=== PATIENT | male | born 1995 | race Caucasian/White ===

== ENCOUNTER 2022-03-14 14:19 | Outpatient (CLI) | payer OTHER ==
--- NOTE | 2022-03-14 15:57 | MRI Report ---
PROCEDURE: Lumbar Spine W/O INDICATIONS: LOW BACK PAIN TECHNIQUE: Noncontrast sagittal T1 spin echo and T2 fast echo, sagittal STIR, axial T1 and T2 fast spin echo thr ough the lumbar spine. In cases with scoliosis, additional coronal T2 fast spin echo may be performe d. COMPARISON: None. FINDINGS: Image quality: Excellent. Alignment and Curvature: There is normal bony alignment. Bone Marrow: Marrow is of normal overall signal. No acute vertebral body compression fractures. Spinal Cord: Conus medullaris terminates at the L2 level. Visualized cord demonstrates normal signa l and size. Paraspinous Soft Tissues: No paravertebral masses. This patient has transitional anatomy. For the purposes of this examination, the level with the last visualized pair of ribs is considered to be T12. By this imaging scheme, there is a transitional S1-S 2 disc. The S1 level is transitional and is lumbarized on the right. T12-L1: Normal in appearance. L1-L2: Normal in appearance. L2-L3: Normal in appearance. L3-L4: Normal in appearance. L4-L5: The disc height and disc signal are well preserved. Mild disc bulge is seen. Mild facet hypertrophy is seen. Mild to moderate bilateral neuroforaminal narrowing can be seen. Mild central canal narrowing is seen. L5-S1: The disc height and disc signal are well preserved. Mild disc bulge is seen. Mild to moder ate facet hypertrophy is seen, left worse than right. At least moderate bilateral neuroforaminal narr owing can be seen. Minimal central canal narrowing is seen. IMPRESSION: Premature lower lumbar spine degenerative changes are seen. 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 Reviewed by: Aguila Headley MD on 03/14/2022 2:56 PM GRACE Approved by: Aguila Headley MD on 03/14/2022 2:56 PM RGACE Station ID: [id number]
== END 2022-03-14 14:20 | disposition home or self-care (01) ==
LOC: DI 14:19
PROVIDERS: ATTEND Student in an Organized Health Care Education/Training Program
DX: M47.816 Spondylosis without myelopathy or radiculopathy, lumbar region (principal); M47.817 Spondylosis without myelopathy or radiculopathy, lumbosacral region; M48.061 Spinal stenosis, lumbar region without neurogenic claudication; M48.07 Spinal stenosis, lumbosacral region

== ENCOUNTER 2022-09-07 09:06 | Outpatient (CLI) | payer OTHER ==
--- NOTE | 2022-09-07 09:36 | SLEEP CARE CONSULTATION ---
Information from patient questionnaire entered by Jenn Gould. I have reviewed and concur with the information entered by Jenn Gould. This document represents the service I personally performed and the decisions made by me, Natalie Ascencio ARNP. History of Present Illness Service Date and Time: 09/07/2022 0906 Reason for Visit: New patient Chief Complaint: reports: Unrefreshed sleep, Snoring, Excessive daytime sleepiness, Observed pauses in breathing, Fatigue Date of Onset: 2yrs Usual bedtime: 2230; weekends later Time it takes to fall asleep: 3-5min Snores at night: Yes Observed to quit breathing while asleep: Yes Sleeps alone due to snoring: Yes Number of times waking at night: 1-2 Reasons for waking at night: reports: Choking, Snoring Toss, Turn, or Twitch while sleeping: Yes Recalls having dreams: Yes Usually gets out of bed at: 0540; weekends 0900 Feels refreshed in the morning: No Morning headache: No Sleepy or fatigued during the day: Yes Ever fallen asleep while driving: No Takes day naps: Yes (daily for at least 20-30 minutes at lunchtime) Dreams during day naps: Yes Prior sleep studies: Yes (Jul 2021 [facility]) Additional HPI information: I had the pleasure of seeing LETTY REID today regarding the possibility of him having a sleep disorder. His current complaints are excessive daytime sleepiness, fatigue, observed pauses in breathing, snoring and unrefreshed sleep. He states he has been "sluggish and tired" for the last 2 years. He is sleeping separate from who is because of his loud snoring and he would sound like he is choking waking her up. He also is stopping breathing when sleeping. He had a sleep study that diagnosed a moderate sleep apnea in Jul or Sep. They were going to set him up with a CPAP but it did not happen. He is not able to find any records of the sleep study results. - Parasomnia Symptoms Ever been unable to move upon waking from sleep: Yes (2 times only last year) Walks in sleep: No Talks in sleep: No Ever acted out dreams in sleep: No Ever felt weak in the knees when startled or emotional: No Bothered by creepy, crawly, restless sensations in legs: No Problems with memory or concentration: Yes (both) Subjective Initial Downing Sleepiness Scale score: 16 (09/07/2022) Past Medical History Past Medical History: reports: Anxiety, Other (chronic back issues) Social History The patient's occupation is a AM. Patient is and lives in . Have you smoked in the past 12 months: No Cigarettes per day (20/pack): 2 Years of smokin (not six yrs but six months) Quit date: 09/2019 Smoking Pack Years: 0.6 Alcohol use: No Caffeine use: Yes Caffeine amount and frequency: 1 8oz coffee daily Family History Family history of sleep disordered breathing: Yes Family Hx Sleep Apnea: Mother: Snoring, Sleep apnea - Untreated, Father: Snoring, Sleep apnea - Untreated Allergies and Home Medications Known drug allergies: No Drug allergies reviewed: Yes (NKDA) Home medication list reviewed: Yes Allergy and home medication list: Medications: Meloxicam, prn Lidocaine patches, prn Gabapentin, prn Review of Systems Weight gain over past 5 years: 30 Cardiovascular: denies: high blood pressure Gastrointestinal: denies: heartburn Neurological: reports: head trauma (concussion 6 yrs ago). denies: headaches Psychiatric: reports: anxiety, depression Ear/Nose/Throat: denies: tonsillectomy, wisdom teeth removed Endocrine: reports: sluggishness Musculoskeletal: reports: back pain Immunologic: reports: other (itchy eyes) Physical Exam Vital signs obtained and entered by: JENN Jefferson MA Blood Pressure: 138/90 (left arm) Cuff size: regular Heart Rate: 57 O2 Saturation: 96 Height: 5 ft 8.5 in Weight: 212 lb 12.8 oz Body Mass Index: 31.8 BMI Classification: Obese Neck circumference: 17 (inches) Mouth and throat: narrow oropharynx Soft palate: long Hard palate: normal Uvula: normal Uvula visualization: 25% Mallampati Class III Tongue: enlarged in size with teeth camara on lateral edges Tonsils: small Neck: normal w/o lymphadenopathy or thyromegaly Heart: regular rate and rhythm Lungs: clear bilaterally Impression and Plan 1. Suspected Obstructive Sleep Apnea-Hypopnea Syndrome, as previously diagnosed and as suggested by a history of loud and irregular snoring, observed cessation of breath while asleep, gasping or choking in sleep, unrefreshed sleep, cognitive impairment, and excessive daytime sleepiness. Narrow oropharynx and obesity are common predisposing factors for obstructive sleep apnea-hypopnea syndrome. I recommend proceeding to polysomnography to confirm the diagnosis and to assess severity. If the patient has significant sleep disordered breathing, a manual CPAP titration study will also be performed to find the optimal treatment pressure. I informed the patient of what the sleep studies involve and after some discussion, obtained agreement to proceed. The pathophysiology of obstructive sleep apnea-hypopnea syndrome was discussed with the patient and health risks of cardiovascular and cerebrovascular disease if not treated. Risks of drowsy driving discussed in detail and patient advised to avoid long distance driving and to mold puller at the first sign of drowsiness. Patient agreed to plan. * Schedule polysomnography * Avoid long distance driving or driving when feeling sleepy. * Avoid alcohol, sedative and muscle relaxant around bedtime. * Attempt to lose weight. * Review instructions provided by trained office staff on how to prepare for the sleep study. * Return for follow-up after sleep study completed. Counseling Topics: Weight loss health impact Visit Type: In Office Time Spent with Patient (minutes): 31 Provider Statement: I spent 100% of the Face to Face Visit with the patient with greater than 50% spent counseling the patient and coordination of care.
[2022-09-07 09:37] VITALS: BP 138/90
== END 2022-09-07 09:07 | disposition home or self-care (01) ==
LOC: SC 09:06
PROVIDERS: ATTEND Nurse Practitioner Family
DX: G47.33 Obstructive sleep apnea (adult) (pediatric) (principal); E66.9 Obesity, unspecified; Z68.31 Body mass index [BMI] 31.0-31.9, adult; Z87.891 Personal history of nicotine dependence
CPT/HCPCS: 99203; 99212

== ENCOUNTER 2022-11-12 20:23 | Outpatient (CLI) | payer OTHER | END 2022-11-12 20:24 | disposition home or self-care (01) | LOC: SC 20:23 | PROVIDERS: ATTEND Nurse Practitioner Family | DX: G47.33 Obstructive sleep apnea (adult) (pediatric) (principal) | CPT/HCPCS: 95810 ==

== ENCOUNTER 2022-11-23 15:47 | Outpatient (CLI) | payer OTHER ==
[2022-11-23 16:08] VITALS: BP 132/86
--- NOTE | 2022-11-23 16:08 | SLEEP CARE CONSULTATION ---
Information from patient questionnaire entered by Maci Gould. I have reviewed and concur with the information entered by Maci Gould. This document represents the service I personally performed and the decisions made by , Natalie Ascencio ARNP. History of Present Illness Service Date and Time: 11/23/2022 1547 Initial Sharon Sleepiness Scale score: 16 (09/07/2022) Current Sharon Sleepiness Scale score: 15 (11/23/22) Additional HPI information: LETTY REID returns for follow up and results of the recently performed polysomnography. The patient was informed of the following findings: No significant sleep disordered breathing with an average AHI of 2.9 and zion oxygen saturation of 89%. I explained the pathophysiology behind obstructive sleep apnea. Patient does not have sleep apnea and was advised how weight gain could increase the risk of developing sleep apnea in the future. I strongly encouraged the patient to lose weight. Patient has moderate snoring. Snoring can be reduced by weight loss. Weight loss is best achieved with diet consult. Patient instructed to contact PCP for referral. Snoring can also be treated with an oral appliance from a dentist. Advised to check insurance coverage. In addition, an ENT evaluation can be do to see if other treatment is indicated. Patient counseled not drink alcohol less than 4 hours before bedtime as it can increase snoring and apnea. Patient was cautioned about risks of drowsy driving until sleepiness symptoms resolve. Patient denies drowsy driving. Sleep Study - Results Type of Sleep Study: Polysomnography (completed 11/12/22) Prior sleep studies: Yes (Jul 2021 [facility]) Polysomnography/Home Sleep Study results: IMPRESSION: The quality of the study is good. The patient had normal sleep efficiency. The sleep architecture was normal as well. Respiratory monitoring showed no significant sleep-d isordered breathing (AHI = 2.9) or hypoxia (zion oxygen saturation of 89%). The patient slept adequately in supine position (supine AHI = 3.0; nonsupine = 2.55). Snore was infrequent and moderate in intensity. There was no significant periodic leg movement of sleep. Cardiac rhythm was normal sinus rhythm without significant arrhythmia. No abnormal behavior (parasomnia) observed during the night. RDI 7.9 Allergies and Home Medications Drug allergies reviewed: Yes (NKDA) Home medication list reviewed: Yes (no changes) Review of Systems Review of systems same as previous: Yes (no changes) Physical Exam Vital signs obtained and entered by: Maci Jefferson MA Blood Pressure: 132/86 (LEFT ARM) Cuff size: regular Heart Rate: 85 O2 Saturation: 98 Height: 5 ft 8.5 in Weight: 215 lb Body Mass Index: 32.2 BMI Classification: Obese Impression and Plan Snoring but no significant sleep disordered breathing. Patient advised that ofte n weight loss will reduce snoring as well as apnea risk. An oral appliance can also be used for snoring. This would require a dental consultation. Patient cautioned not to use other online appliances as can cause bite issues. A list of accredited dentists in [facility] and one local dentist who makes oral appliances is available in office. Patient is advised to check if insurance will cover. An ENT consult can also be helpful to determine if any other treatment is an option. * Attempt to lose weight * Avoid alcohol consumption near bedtime * The patient is cautioned about driving until sleepiness is completely resolved. * Return as needed for follow up. Counseling Topics: Weight loss health impact Visit Type: In Office Time Spent with Patient (minutes): 10 Provider Statement: I spent 100% of the Face to Face Visit with the patient with greater than 50% spent counseling the patient and coordination of care.
== END 2022-11-23 15:48 | disposition home or self-care (01) ==
LOC: SC 15:47
PROVIDERS: ATTEND Nurse Practitioner Family
DX: R06.83 Snoring (principal); E66.9 Obesity, unspecified; Z68.32 Body mass index [BMI] 32.0-32.9, adult
CPT/HCPCS: 99212

== ENCOUNTER 2023-03-13 12:01 | Outpatient (CLI) | payer OTHER | END 2023-03-13 23:59 | disposition critical access hospital (66) | LOC: EMS 12:01 | DX: R07.9 Chest pain, unspecified (principal); F41.9 Anxiety disorder, unspecified | CPT/HCPCS: A0425; A0429 ==

== ENCOUNTER 2023-03-13 12:24 | Emergency (ER) | payer OTHER ==
[2023-03-13 12:44] VITALS: BP 132/91
--- NOTE | 2023-03-13 12:53 | XRAY Report ---
PROCEDURE: Chest 1 View X-Ray INDICATIONS: Chest Pain TECHNIQUE: One view of the chest was acquired. COMPARISON: None. FINDINGS: Surgical changes and devices: None. Lungs and pleura: No pleural effusions or pneumothorax. Lungs are clear. Mediastinum: Mediastinal contours appear normal. Heart size is normal. Bones and chest wall: No suspicious bony lesions. Overlying soft tissues appear unremarkable. IMPRESSION: No acute cardiopulmonary process. Reviewed by: Bran Cruz on 03/13/2023 12:52 PM PDT Approved by: Bran Cruz on 03/13/2023 12:52 PM PDT Station ID: [id number]
[2023-03-13 12:54] LABS: BASOPHILS % (AUTO) 0.5 %; EOSINOPHILS # (AUTO) 0.1 10^3/uL (0.0-0.7); EOSINOPHILS % (AUTO) 2.2 %; HCT - HEMATOCRIT 45.8 % (42.0-52.0); HGB - HEMOGLOBIN 15.4 g/dL (14.0-18.0); LYMPHOCYTES # (AUTO) 1.1 10^3/uL (1.5-3.5); LYMPHOCYTES % (AUTO) 19.6 %; MEAN CORPUSCULAR HEMOGLOBIN 28.2 pg (27.0-31.0); MEAN CORPUSCULAR HGB CONC 33.6 g/dL (32.0-36.0); MEAN CORPUSCULAR VOLUME 83.7 fL (80.0-94.0); MEAN PLATELET VOLUME 9.5 fL (7.4-11.4); MONOCYTES # (AUTO) 0.8 10^3/uL (0.0-1.0); MONOCYTES % (AUTO) 14.3 %; NEUTROPHILS # (AUTO) 3.7 10^3/uL (1.5-6.6); NEUTROPHILS % (AUTO) 62.9 %; PLT - PLATELET COUNT 208 10^3/uL (130-450); RED BLOOD COUNT 5.47 10^6/uL (4.70-6.10); RED CELL DISTRIBUTION WIDTH 13.8 % (12.0-15.0); WHITE BLOOD COUNT 5.8 x10^3/uL (4.8-10.8)
[2023-03-13 13:05] LABS: ALBUMIN 3.9 g/dL (3.2-5.5); ALBUMIN/GLOBULIN RATIO 1.1 (1.0-2.2); BILIRUBIN,TOTAL 0.8 mg/dL (0.2-1.0); CREATININE 0.9 mg/dL (0.6-1.2); POTASSIUM 3.5 mmol/L (3.5-5.0); TOTAL PROTEIN 7.6 g/dL (6.7-8.2)
[2023-03-13] MEDS ORDERED: NITROGLYCERIN SL 0.4 MG TABLET SL STA (13:19)
[2023-03-13] MEDS ORDERED: ASPIRIN CHEW 81 MG TABLET PO STA (13:19)
--- NOTE | 2023-03-13 13:34 | ED Physician Documentation ---
History of Present Illness - Stated complaint Stated Complaint: CP - Chief complaint Chief Complaint: Cardiac - Additonal information Additional information: 27-year-old male presents emergency department for evaluation of acute substernal chest pain and pressure without radiation. Symptoms began 1115 when he was taking a shower. He had the vague feeling that he was going to faint. Patient reports that over the preceding 2 days he has had nausea vomiting and diarrhea which she attributes to a foodborne illness. Has been taking Zofran and Imodium. Denies any history of hypertension or diabetes. No tobacco or vaping. No alcohol use. Review of Systems Cardiac: reports: Chest pain / pressure Respiratory: reports: Reviewed and negative GI: reports: Nausea, Vomiting, Diarrhea. denies: Bloody / black stool : reports: Reviewed and negative Skin: reports: Reviewed and negative Musculoskeletal: reports: Reviewed and negative PD PAST MEDICAL HISTORY - Past Medical History Past Medical History: Yes Cardiovascular: None Respiratory: Sleep apnea Neuro: None Endocrine/Autoimmune: None GI: None : None HEENT: None Psych: Anxiety, Panic attacks Musculoskeletal: Chronic back pain Derm: None - Past Surgical History Past Surgical History: No - Present Medications Home Medications: Ambulatory Orders Medication Instructions Recorded Confirmed Loperamide [Imodium] 2 mg PO QID PRN 03/13/23 03/13/23 Ondansetron Odt [Zofran Odt] 4 mg TL Q6H PRN 03/13/23 03/13/23 - Allergies Allergies/Adverse Reactions: Allergies Allergy/AdvReac Type Severity Reaction Status Date / Time No Known Drug Allergies Allergy Verified 03/13/23 12:31 - Social History Does the pt smoke?: No Smoking Status: Never smoker Does the pt drink ETOH?: No Does the pt have substance abuse?: No - Immunizations Immunizations are current?: Yes PD ED PE NORMAL - General General: Alert and oriented X 3, No acute distress, Well developed/nourished - HEENT HEENT: Atraumatic, Moist mucous membranes - Cardiac Cardiac: RRR, No murmur, No rub (No rub was noted.) - Respiratory Respiratory: No respiratory distress, Clear bilaterally - Back Back: No CVA TTP - Derm Derm: Normal color, Warm and dry - Extremities Extremities: No deformity, No tenderness to palpate, Normal ROM s pain Results - Vitals Vitals: Vital Signs - 24 hr 03/13/23 03/13/23 12:31 12:43 Temperature 36.9 C Heart Rate 81 76 Respiratory 20 17 Rate Blood Pressure 131/88 H 132/91 H O2 Saturation 98 99 Oxygen O2 Source Room air - EKG (time done) 1235 EKG releavant findings:: EKG personally interpreted by author of this note. Relevant findings are: Rate: Rate (enter#) (69) Rhythm: NSR Tropic: Normal Intervals: Normal MO QRS: Normal Ischemia: Other (Global ST elevation in all leads.) Compare to prior EKG: Old EKG unavailable Computer interpretation: Agree with computer - Labs Labs: Laboratory Tests 03/13/23 03/13/23 03/13/23 12:48 12:48 12:48 WBC 5.8 RBC 5.47 Hgb 15.4 Hct 45.8 MCV 83.7 MCH 28.2 MCHC 33.6 RDW 13.8 Plt Count 208 MPV 9.5 Neut # (Auto) 3.7 Lymph # (Auto) 1.1 L Donley # (Auto) 0.8 Eos # (Auto) 0.1 Baso # (Auto) 0.0 Absolute Nucleated RBC 0.00 Nucleated RBC % 0.0 Sodium 140 Potassium 3.5 Chloride 106 Carbon Dioxide 24 Anion Gap 10.0 BUN 12 Creatinine 0.9 Estimated GFR (MDRD) 100 Glucose 98 Calcium 9.0 Total Bilirubin 0.8 AST 49 H ALT 51 Alkaline Phosphatase 38 L Troponin I High Sens 3902.9 H* Total Protein 7.6 Albumin 3.9 Globulin 3.7 Albumin/Globulin Ratio 1.1 Lipase 32 PD Medical Decision Making - ED course Complexity details: reviewed results, re-evaluated patient, considered differential, d/w patient ED course: 27-year-old male presents emergency department for evaluation of acute chest pain that began at 1115 while showering. On presentation to the emergency department his EKG showed global ST elevation. His initial troponin is markedly elevated at 3900. This likely indicates an acute pericarditis versus a myocarditis. Unfortunately [facility] does not have any cardiology services available. I did speak on the phone with Dr. Lindquist ED physician at [facility]. He agrees to accept the patient in direct transfer for further Evaluation of chest pain with elevated troponins. The differential remains STEMI, myocarditis or pericarditis. Patient was administered 0.4 mg of nitroglycerin here in the ER with some improvement in the chest pain. He was also started on a heparin cardiac protocol. This was discussed with Dr. Lindquist who is in agreement. Patient's chest x-ray is without any acute cold cardiopulmonary process to suggest pneumonia, pleural effusion, cardiomegaly or pneumothorax. The patient will be transported to [facility] via [facility]. I have completed the appropriate [employer] paperwork Departure - Departure Disposition: 02 Transfer Acute Care Hosp Clinical Impression: Elevated troponin Chest pain Qualifiers: Chest pain type: unspecified Qualified Code(s): R07.9 - Chest pain, unspecified Condition: Serious
[2023-03-13] MEDS ORDERED: HEPARIN 25000UNITS/500ML (D5W) 25,000 UNIT/500 ML BAG IV SCH (14:00)
== END 2023-03-13 14:01 | disposition short-term general hospital (02) ==
LOC: EDUNIT# → ED 12:24
DX: R77.8 Other specified abnormalities of plasma proteins (principal); R07.9 Chest pain, unspecified
CPT/HCPCS: 36415; 71045; 80053; 83690; 84484; 85025; 93005; 96374; 99285; A9270